=== PATIENT | female | born 1985 | race Caucasian/White ===

== ENCOUNTER 2017-06-11 23:39 | Inpatient (IN) | payer OTHER ==
[~2017-06-11] VITALS: Ht 167.6 cm; Wt 72.0 kg
[2017-06-12] VITALS (14 sets, daily range): BP systolic 104–131; BP diastolic 51–88
[2017-06-12 00:30] LABS: Basophils # (auto) 0 uL; Basophils % (auto) 0.6 % (0.0-2.0); Eosinophils # (auto) 0.1 uL; Eosinophils % (auto) 0.7 % (0.0-7.0); Hematocrit 38.8 % (36.0-46.0); Hemoglobin 12.9 g/dL (12.2-16.2); Lymphocytes # (auto) 2.7 uL; Lymphocytes % (auto) 32.6 % (10.0-50.0); Mean Corpuscular Hemoglobin 27.3 pg (28.0-32.0); Mean Corpuscular Hgb Conc. 33.3 g/dL (32.0-36.0); Mean Corpuscular Volume 81.9 fL (80.0-100.0); Monocytes # (auto) 0.6 uL; Monocytes % (auto) 7.8 % (0.0-12.0); Neutrophils # (auto) 4.7 uL; Neutrophils % (auto) 58.3 % (37.0-80.0); Nucleated Red Blood Cells % 0.1 %; Platelet Count (auto) 375 10^3/uL (140-450); Red Blood Cells 4.74 10^6/uL (4.0-5.20); Red Cell Distribution Width 16.6 % (11.8-14.3); White Blood Cell 8.1 10^3/uL (4.4-10.8)
[2017-06-12] MEDS ORDERED: SODIUM CHLORIDE 0.9% 1,000 ML IV ONE (00:45)
[2017-06-12] MEDS ORDERED: ATROPINE SULF 0.5 MG/5ML SYR IV ONE (00:45)
[2017-06-12 00:46] LABS: Alanine Aminotransferase 20 U/L (13-56); Albumin 4.1 g/dL (3.4-5.0); Anion Gap 6 (5-15); Aspartate Aminotransferase 15 U/L (15-37); BUN/Creatinine Ratio 10.5; Blood Alcohol < 3.0 mg/dL (0-5); Blood Urea Nitrogen 10 mg/dL (7-18); Carbon Dioxide 27 mmol/L (21-32); Chloride 106 mmol/L (98-107); GFR African American 89 mL/min; GFR Non-African American 74 mL/min; Glucose 170 mg/dL (74-106); Magnesium 2.2 mg/dL (1.6-2.6); Potassium 3.1 mmol/L (3.5-5.1); Sodium 139 mmol/L (136-145)
[2017-06-12 00:48] LABS: Alkaline Phosphatase 74 U/L (45-117); Bilirubin, Total 0.3 mg/dL (0.2-1.0); Total Protein 7.8 g/dL (6.4-8.2)
[2017-06-12 01:06] LABS: Acetaminophen < 2.0 ug/mL (10-30); Salicylate 1.9 mg/dL (2.8-20.0)
[2017-06-12 01:41] LABS: Magnesium 2.3 mg/dL (1.6-2.6)
[2017-06-12 02:09] LABS: Urine WBC None Seen /hpf (0 - 5)
[2017-06-12 02:37] LABS: Urine Amorphous Crystal MANY /hpf (None Seen); Urine Bacteria NONE SEEN /hpf (None Seen); Urine Blood Negative /uL (Negative)
[2017-06-12 02:39] LABS: Alcohol, Urine < 3.0 mg/dL (0-5); Amphetamine Screen, Urine POSITIVE (NEGATIVE); Barbiturate Scree,Urine NEGATIVE (NEGATIVE); Benzodiazephine Screen, Urine NEGATIVE (NEGATIVE); Cannabinoid Screen, Urine POSITIVE (NEGATIVE); Cocaine Screen, Urine NEGATIVE (NEGATIVE); Opiate Scree,Urine NEGATIVE (NEGATIVE); Phencyclidine Screen, Urine NEGATIVE (NEGATIVE)
[2017-06-12] MEDS ORDERED: ONDANSETRON HCL 4 MG/2 ML VIAL IV PRN (05:00)
[2017-06-12] MEDS ORDERED: NITROGLYCERIN 0.4 MG SL TAB SL PRN (05:00)
[2017-06-12] MEDS ORDERED: MORPHINE SULFATE 4 MG/ML SYR/VIAL IV PRN (05:00)
[2017-06-12] MEDS ORDERED: NOREPINEPHRINE 8 MG/250ML KIT 250 ML IV ONE (06:10)
[2017-06-12] MEDS: SODIUM CHLORIDE 0.9% 1,000 ML IV SCH ×2 (08:00→15:18)
[2017-06-12] MEDS: FAMOTIDINE 20 MG TAB PO SCH ×2 (10:48→22:00)
[2017-06-12] MEDS: ENOXAPARIN SOD 40 MG/0.4 ML SYRINGE SC SCH (10:48)
[2017-06-12] MEDS ORDERED: IPRATROPIUM BROM 0.5 MG/2.5ML INH SOL NEB ONE ×2 (16:45→17:30)
[2017-06-12 17:00] LABS: Basophils # (auto) 0 uL; Basophils % (auto) 0.1 % (0.0-2.0); Eosinophils # (auto) 0 uL; Hematocrit 43.5 % (36.0-46.0); Hemoglobin 14.2 g/dL (12.2-16.2); Lymphocytes # (auto) 1.3 uL; Lymphocytes % (auto) 7.3 % (10.0-50.0); Mean Corpuscular Hemoglobin 27.2 pg (28.0-32.0); Mean Corpuscular Hgb Conc. 32.6 g/dL (32.0-36.0); Mean Corpuscular Volume 83.5 fL (80.0-100.0); Monocytes % (auto) 5.7 % (0.0-12.0); Neutrophils # (auto) 15.3 uL; Neutrophils % (auto) 86.9 % (37.0-80.0); Platelet Count (auto) 483 10^3/uL (140-450); Red Cell Distribution Width 16.8 % (11.8-14.3); White Blood Cell 17.6 10^3/uL (4.4-10.8)
[2017-06-12] MEDS ORDERED: ATROPINE SULFATE 0.4 MG/1 ML VIAL ONE (17:05)
[2017-06-12 17:11] LABS: Urine Bacteria FEW /hpf (None Seen); Urine Blood Negative /uL (Negative); Urine Mucus FEW (None Seen); Urine Specific Gravity 1.024 (1.001-1.035); Urine WBC <1 /hpf (0 - 5)
[2017-06-12 17:13] LABS: Alanine Aminotransferase 23 U/L (13-56); Albumin 4.4 g/dL (3.4-5.0); Anion Gap 4 (5-15); Aspartate Aminotransferase 23 U/L (15-37); BUN/Creatinine Ratio 6.5; Blood Urea Nitrogen 6 mg/dL (7-18); Carbon Dioxide 27 mmol/L (21-32); Chloride 105 mmol/L (98-107); GFR African American 92 mL/min; GFR Non-African American 76 mL/min; Glucose 157 mg/dL (74-106); Magnesium 2.5 mg/dL (1.6-2.6); Potassium 4.2 mmol/L (3.5-5.1); Sodium 136 mmol/L (136-145)
[2017-06-12 17:19] LABS: INR 0.97 (0.9-1.15); Partial Thromboplastin Time 26.9 sec (22.64-33.71); Prothrombin Time 10.6 sec (9.37-12.3)
[2017-06-12 17:25] LABS: Alkaline Phosphatase 82 U/L (45-117); Bilirubin, Total 0.5 mg/dL (0.2-1.0); Total Protein 8.9 g/dL (6.4-8.2)
[2017-06-12] MEDS: MAGNESIUM SULFATE 1GM/100ML 100 ML IV SCH ×8 (17:26→21:00)
[2017-06-12] MEDS: DOPamine 1600MCG/ML D5W 250 ML IV SCH (17:56)
[2017-06-12] MEDS ORDERED: PROMETHAZINE HCL 25 MG/ML 1ML IV PRN (19:30)
[2017-06-12] MEDS ORDERED: ISOPROTERENOL HCL INJECTION 1 MG in D5W 5% 250 ML IV SCH (19:39)
[2017-06-12] MEDS: METOPROLOL TARTRATE 50 MG TAB NG SCH (22:00)
[2017-06-12] MEDS: SOD CHL 0.45% WITH 20MEQ KCL 1,000 ML IV SCH (22:00)
[2017-06-13] VITALS (26 sets, daily range): BP systolic 113–154; BP diastolic 65–91
[2017-06-13] MEDS ORDERED: DOPamine 1600MCG/ML D5W 250 ML IV ONE (02:24)
[2017-06-13] MEDS: METOPROLOL TARTRATE 50 MG TAB NG SCH ×3 (06:00→22:00)
[2017-06-13 07:09] LABS: Basophils # (auto) 0 uL; Eosinophils # (auto) 0 uL; Hematocrit 41.3 % (36.0-46.0); Hemoglobin 13.6 g/dL (12.2-16.2); Lymphocytes # (auto) 0.7 uL; Lymphocytes % (auto) 3.8 % (10.0-50.0); Mean Corpuscular Hemoglobin 27.1 pg (28.0-32.0); Mean Corpuscular Hgb Conc. 32.9 g/dL (32.0-36.0); Mean Corpuscular Volume 82.4 fL (80.0-100.0); Monocytes # (auto) 0.7 uL; Monocytes % (auto) 3.7 % (0.0-12.0); Neutrophils # (auto) 16.5 uL; Neutrophils % (auto) 92.5 % (37.0-80.0); Platelet Count (auto) 371 10^3/uL (140-450); Red Blood Cells 5.01 10^6/uL (4.0-5.20); Red Cell Distribution Width 16.8 % (11.8-14.3); White Blood Cell 17.8 10^3/uL (4.4-10.8)
[2017-06-13 07:23] LABS: Albumin 3.7 g/dL (3.4-5.0); BUN/Creatinine Ratio 9.1; Bilirubin, Total 0.5 mg/dL (0.2-1.0); Calcium 8.5 mg/dL (8.5-10.1); Potassium 3.9 mmol/L (3.5-5.1)
[2017-06-13] MEDS ORDERED: SUCCINYLCHOLINE CHLORIDE 20 MG/ML 10ML VIAL IV ONE ×3 (08:00→08:11)
[2017-06-13] MEDS ORDERED: ETOMIDATE (2MG/ML) 20ML VIAL IV ONE ×3 (08:00→08:11)
[2017-06-13] MEDS ORDERED: MIDAZOLAM DRIP 50 mg/50mL 50 ML IV SCH (08:20)
[2017-06-13] MEDS: MIDAZOLAM DRIP 50 mg/50mL 50 ML IV SCH (08:25)
[2017-06-13] MEDS: SOD CHL 0.45% WITH 20MEQ KCL 1,000 ML IV SCH ×2 (10:00→22:40)
[2017-06-13] MEDS: ENOXAPARIN SOD 40 MG/0.4 ML SYRINGE SC SCH (11:55)
[2017-06-13] MEDS: FAMOTIDINE 20 MG TAB PO SCH ×2 (11:55→22:30)
[2017-06-13] MEDS: DOPamine 1600MCG/ML D5W 250 ML IV SCH (12:50)
[2017-06-13] MEDS: POTASSIUM CHL 20MEQ/100ML 100 ML IV SCH ×2 (14:43→15:01)
[2017-06-13] MEDS: AMIODARONE HCL 900 MG in DEXTROSE 500 ML IV SCH ×2 (14:47→22:54)
[2017-06-13] MEDS ORDERED: ATROPINE SULF 0.5 MG/5ML SYR IV ONE (19:06)
[2017-06-13] MEDS ORDERED: PROPOFOL 100 ML IV ONE (22:40)
[2017-06-13] MEDS: PROPOFOL 100 ML IV SCH (22:45)
[2017-06-14] VITALS (59 sets, daily range): BP systolic 77–153; BP diastolic 40–108
[2017-06-14] MEDS ORDERED: NOREPINEPHRINE 8 MG/250ML KIT 250 ML IV ONE (01:54)
[2017-06-14] MEDS ORDERED: NOREPINEPHRINE 8 MG/250ML KIT 250 ML IV SCH (02:15)
[2017-06-14] MEDS: DOPamine 1600MCG/ML D5W 250 ML IV SCH ×3 (04:21→16:30)
[2017-06-14] MEDS ORDERED: MIDAZOLAM HCL 10 ML IV ONE (05:59)
[2017-06-14] MEDS: METOPROLOL TARTRATE 50 MG TAB NG SCH ×3 (06:00→22:00)
[2017-06-14 07:37] LABS: Basophils # (auto) 0 uL; Basophils % (auto) 0.1 % (0.0-2.0); Eosinophils # (auto) 0 uL; Eosinophils % (auto) 0.1 % (0.0-7.0); Hematocrit 37.7 % (36.0-46.0); Hemoglobin 12.5 g/dL (12.2-16.2); Lymphocytes # (auto) 1.8 uL; Mean Corpuscular Hemoglobin 27.3 pg (28.0-32.0); Mean Corpuscular Hgb Conc. 33.2 g/dL (32.0-36.0); Mean Corpuscular Volume 82.1 fL (80.0-100.0); Monocytes # (auto) 1.4 uL; Monocytes % (auto) 6.2 % (0.0-12.0); Neutrophils % (auto) 85.6 % (37.0-80.0); Platelet Count (auto) 374 10^3/uL (140-450); Red Blood Cells 4.59 10^6/uL (4.0-5.20); Red Cell Distribution Width 17.4 % (11.8-14.3); White Blood Cell 22.2 10^3/uL (4.4-10.8)
[2017-06-14 07:51] LABS: Albumin 3.2 g/dL (3.4-5.0); BUN/Creatinine Ratio 14.9; Calcium 8.5 mg/dL (8.5-10.1); Potassium 3.6 mmol/L (3.5-5.1)
[2017-06-14 07:54] LABS: Bilirubin, Total 0.4 mg/dL (0.2-1.0); Total Protein 6.7 g/dL (6.4-8.2)
[2017-06-14 09:24] LABS: Urine Bacteria FEW /hpf (None Seen); Urine Blood 1+ /uL (Negative); Urine Mucus MODERATE (None Seen); Urine Specific Gravity 1.035 (1.001-1.035); Urine WBC 25 /hpf (0 - 5)
[2017-06-14] MEDS: MIDAZOLAM DRIP 50 mg/50mL 50 ML IV SCH ×3 (10:23→18:07)
[2017-06-14] MEDS: PROPOFOL 100 ML IV SCH ×4 (10:24→18:27)
[2017-06-14] MEDS: FAMOTIDINE 20 MG TAB PO SCH ×2 (11:04→22:12)
[2017-06-14] MEDS: ENOXAPARIN SOD 40 MG/0.4 ML SYRINGE SC SCH (11:04)
[2017-06-14] MEDS: PIPERACILLIN-TAZO 4.5GM 50 ML IV SCH ×2 (13:00→19:30)
[2017-06-14] MEDS ORDERED: ISOPROTERENOL HCL INJECTION 1 MG in D5W 5% 250 ML IV ONE (15:18)
[2017-06-14] MEDS: MAGNESIUM SULFATE 1GM/100ML 100 ML IV SCH ×4 (15:32→17:30)
[2017-06-14] MEDS: MAGNESIUM SULFATE 1 GM/100 ML IV ONE ×2 (15:32→15:35)
[2017-06-14] MEDS: SOD CHL 0.45% WITH 20MEQ KCL 1,000 ML IV SCH (15:48)
[2017-06-14] MEDS: AMIODARONE HCL 900 MG in DEXTROSE 500 ML IV SCH (22:13)
[2017-06-15] VITALS (70 sets, daily range): BP systolic 87–126; BP diastolic 36–83
[2017-06-15] MEDS: PIPERACILLIN-TAZO 4.5GM 50 ML IV SCH ×4 (00:17→18:00)
[2017-06-15] MEDS: SOD CHL 0.45% WITH 20MEQ KCL 1,000 ML IV SCH ×3 (01:20→18:02)
[2017-06-15] MEDS ORDERED: DOPamine 1600MCG/ML D5W 250 ML IV ONE (03:36)
[2017-06-15] MEDS: METOPROLOL TARTRATE 50 MG TAB NG SCH (06:00)
[2017-06-15 07:37] LABS: BUN/Creatinine Ratio 13.9; Calcium 7.4 mg/dL (8.5-10.1); Magnesium 2.2 mg/dL (1.6-2.6); Potassium 4.2 mmol/L (3.5-5.1)
[2017-06-15 08:00] LABS: Basophils # (auto) 0.1 uL; Basophils % (auto) 0.4 % (0.0-2.0); Eosinophils # (auto) 0.2 uL; Eosinophils % (auto) 1.1 % (0.0-7.0); Hematocrit 33.5 % (36.0-46.0); Hemoglobin 10.9 g/dL (12.2-16.2); Lymphocytes # (auto) 1.3 uL; Lymphocytes % (auto) 8.3 % (10.0-50.0); Mean Corpuscular Hemoglobin 27.3 pg (28.0-32.0); Mean Corpuscular Hgb Conc. 32.6 g/dL (32.0-36.0); Mean Corpuscular Volume 83.6 fL (80.0-100.0); Monocytes % (auto) 6.2 % (0.0-12.0); Neutrophils # (auto) 13.5 uL; Platelet Count (auto) 294 10^3/uL (140-450); Red Cell Distribution Width 17.2 % (11.8-14.3)
[2017-06-15] MEDS: PROPOFOL 100 ML IV SCH ×2 (09:00→16:30)
[2017-06-15] MEDS: MIDAZOLAM DRIP 50 mg/50mL 50 ML IV SCH ×4 (09:00→22:48)
[2017-06-15] MEDS: FAMOTIDINE 20 MG TAB PO SCH ×2 (09:54→22:34)
[2017-06-15] MEDS: ENOXAPARIN SOD 40 MG/0.4 ML SYRINGE SC SCH (09:54)
[2017-06-15] MEDS ORDERED: SODIUM CHLORIDE 0.9% 500 ML IV ONE (14:30)
[2017-06-15] MEDS: DOPamine 1600MCG/ML D5W 250 ML IV SCH (18:01)
[2017-06-15] MEDS: Fibersource Hn 1 Liter GT SCH (18:56)
[2017-06-16] VITALS (102 sets, daily range): BP systolic 87–143; BP diastolic 45–101
[2017-06-16] MEDS: PROPOFOL 100 ML IV SCH ×3 (00:14→18:29)
[2017-06-16] MEDS: PIPERACILLIN-TAZO 4.5GM 50 ML IV SCH ×4 (00:14→17:59)
[2017-06-16 04:52] LABS: Basophils # (auto) 0 uL; Basophils % (auto) 0.4 % (0.0-2.0); Eosinophils # (auto) 0.4 uL; Hemoglobin 11.2 g/dL (12.2-16.2); Lymphocytes # (auto) 1.3 uL; Monocytes # (auto) 0.7 uL
[2017-06-16 04:57] LABS: Eosinophils % (auto) 3.9 % (0.0-7.0); Hematocrit 34.5 % (36.0-46.0); Lymphocytes % (auto) 11.8 % (10.0-50.0); Mean Corpuscular Hemoglobin 26.7 pg (28.0-32.0); Mean Corpuscular Hgb Conc. 32.4 g/dL (32.0-36.0); Mean Corpuscular Volume 82.2 fL (80.0-100.0); Monocytes % (auto) 6.4 % (0.0-12.0); Neutrophils # (auto) 8.6 uL; Neutrophils % (auto) 77.5 % (37.0-80.0); Platelet Count (auto) 291 10^3/uL (140-450); Red Cell Distribution Width 17.2 % (11.8-14.3); White Blood Cell 11.1 10^3/uL (4.4-10.8)
[2017-06-16] MEDS: MIDAZOLAM DRIP 50 mg/50mL 50 ML IV SCH ×3 (05:22→16:05)
[2017-06-16 05:44] LABS: Albumin 2.3 g/dL (3.4-5.0); BUN/Creatinine Ratio 15.2; Bilirubin, Total 0.3 mg/dL (0.2-1.0); Calcium 8.1 mg/dL (8.5-10.1); Magnesium 2.3 mg/dL (1.6-2.6); Potassium 3.7 mmol/L (3.5-5.1); Total Protein 6.3 g/dL (6.4-8.2)
[2017-06-16] MEDS: SOD CHL 0.45% WITH 20MEQ KCL 1,000 ML IV SCH (07:00)
[2017-06-16] MEDS: ENOXAPARIN SOD 40 MG/0.4 ML SYRINGE SC SCH (09:54)
[2017-06-16] MEDS: FAMOTIDINE 20 MG TAB PO SCH ×2 (09:54→22:00)
[2017-06-16] MEDS: ACETAMINOPHEN 325 MG TAB PO PRN (15:00)
[2017-06-16] MEDS ORDERED: VANCOMYCIN 1GM/250ML 250 ML IV ONE ×2 (17:45→21:00)
[2017-06-16] MEDS ORDERED: VANCOMYCIN PER PHARMACY 0 MG IV SCH (18:00)
[2017-06-16] MEDS: Fibersource Hn 1 Liter GT SCH (18:29)
[2017-06-16] MEDS: DOPamine 1600MCG/ML D5W 250 ML IV SCH (22:45)
[2017-06-17] VITALS (106 sets, daily range): BP systolic 96–217; BP diastolic 52–119
[2017-06-17] MEDS: PROPOFOL 100 ML IV SCH ×3 (01:00→11:41)
[2017-06-17] MEDS: ACETAMINOPHEN 325 MG TAB PO PRN ×2 (02:31→18:42)
[2017-06-17 04:03] LABS: Basophils # (auto) 0 uL; Lymphocytes # (auto) 1.1 uL; Monocytes # (auto) 0.7 uL; Platelet Count (auto) 310 10^3/uL (140-450)
[2017-06-17 04:06] LABS: Basophils % (auto) 0.4 % (0.0-2.0); Eosinophils # (auto) 0.2 uL; Eosinophils % (auto) 2.2 % (0.0-7.0); Hematocrit 32.1 % (36.0-46.0); Hemoglobin 10.5 g/dL (12.2-16.2); Lymphocytes % (auto) 9.9 % (10.0-50.0); Mean Corpuscular Hgb Conc. 32.8 g/dL (32.0-36.0); Mean Corpuscular Volume 82.3 fL (80.0-100.0); Monocytes % (auto) 6.1 % (0.0-12.0); Neutrophils % (auto) 81.4 % (37.0-80.0); Red Cell Distribution Width 16.9 % (11.8-14.3)
[2017-06-17 04:21] LABS: Potassium 3.8 mmol/L (3.5-5.1)
[2017-06-17 04:29] LABS: BUN/Creatinine Ratio 19.6; Calcium 8.6 mg/dL (8.5-10.1)
[2017-06-17] MEDS: VANCOMYCIN 1GM/250ML 250 ML IV SCH ×2 (05:00→12:49)
[2017-06-17] MEDS: PIPERACILLIN-TAZO 4.5GM 50 ML IV SCH ×3 (06:12→11:51)
[2017-06-17] MEDS: SOD CHL 0.45% WITH 20MEQ KCL 1,000 ML IV SCH (06:40)
[2017-06-17] MEDS: MIDAZOLAM DRIP 50 mg/50mL 50 ML IV SCH ×4 (07:38→22:02)
[2017-06-17] MEDS: ENOXAPARIN SOD 40 MG/0.4 ML SYRINGE SC SCH (09:28)
[2017-06-17] MEDS: FAMOTIDINE 20 MG TAB PO SCH ×2 (09:28→22:05)
[2017-06-17] MEDS: LEVOFLOXACIN 500 MG TAB GT SCH (12:49)
[2017-06-17] MEDS: DOPamine 1600MCG/ML D5W 250 ML IV SCH (17:17)
[2017-06-17] MEDS ORDERED: ATROPINE SULF 0.5 MG/5ML SYR ONE (20:24)
[2017-06-17] MEDS ORDERED: ATROPINE SULF 0.5 MG/5ML SYR IV ONE (20:30)
[2017-06-17] MEDS: VANCOMYCIN 1,250 MG in D5W 5% 250 ML IV SCH (21:30)
[2017-06-18] VITALS (101 sets, daily range): BP systolic 94–128; BP diastolic 41–77
[2017-06-18] MEDS: ACETAMINOPHEN 325 MG TAB PO PRN (01:31)
[2017-06-18 04:18] LABS: Basophils # (auto) 0 uL; Eosinophils # (auto) 0.2 uL; Eosinophils % (auto) 1.9 % (0.0-7.0); Lymphocytes # (auto) 1.7 uL; Monocytes # (auto) 0.9 uL; Neutrophils # (auto) 8.9 uL; White Blood Cell 11.8 10^3/uL (4.4-10.8)
[2017-06-18 04:22] LABS: Basophils % (auto) 0.4 % (0.0-2.0); Hematocrit 28.6 % (36.0-46.0); Hemoglobin 9.8 g/dL (12.2-16.2); Lymphocytes % (auto) 14.7 % (10.0-50.0); Mean Corpuscular Hgb Conc. 34.2 g/dL (32.0-36.0); Mean Corpuscular Volume 81.7 fL (80.0-100.0); Monocytes % (auto) 7.7 % (0.0-12.0); Neutrophils % (auto) 75.3 % (37.0-80.0); Platelet Count (auto) 298 10^3/uL (140-450); Red Cell Distribution Width 17.1 % (11.8-14.3)
[2017-06-18 04:37] LABS: BUN/Creatinine Ratio 13.5; Calcium 8.3 mg/dL (8.5-10.1); Potassium 3.7 mmol/L (3.5-5.1)
[2017-06-18] MEDS: SOD CHL 0.45% WITH 20MEQ KCL 1,000 ML IV SCH ×3 (05:21→17:55)
[2017-06-18] MEDS: VANCOMYCIN 1,250 MG in D5W 5% 250 ML IV SCH ×3 (05:21→21:00)
[2017-06-18] MEDS: MIDAZOLAM DRIP 50 mg/50mL 50 ML IV SCH ×5 (05:52→22:21)
[2017-06-18] MEDS: LEVOFLOXACIN 500 MG TAB GT SCH (09:43)
[2017-06-18] MEDS: ENOXAPARIN SOD 40 MG/0.4 ML SYRINGE SC SCH (09:43)
[2017-06-18] MEDS: methylPREDNISolone SOD SUCC 40 MG/ML VL IV SCH ×2 (09:43→22:21)
[2017-06-18] MEDS: FAMOTIDINE 20 MG TAB PO SCH ×2 (09:43→22:21)
[2017-06-18] MEDS: DOPamine 1600MCG/ML D5W 250 ML IV SCH (11:49)
[2017-06-18] MEDS: PROPOFOL 100 ML IV SCH ×2 (13:31→22:56)
[2017-06-19] VITALS (105 sets, daily range): BP systolic 93–142; BP diastolic 36–99
[2017-06-19] MEDS: MIDAZOLAM DRIP 50 mg/50mL 50 ML IV SCH ×2 (02:41→22:10)
[2017-06-19] MEDS: VANCOMYCIN 1GM/250ML 250 ML IV SCH ×3 (03:08→18:32)
[2017-06-19] MEDS: PROPOFOL 100 ML IV SCH (05:00)
[2017-06-19] MEDS: DOPamine 1600MCG/ML D5W 250 ML IV SCH (06:21)
[2017-06-19 07:13] LABS: BUN/Creatinine Ratio 23.3; Calcium 8.7 mg/dL (8.5-10.1); Potassium 4.5 mmol/L (3.5-5.1)
[2017-06-19] MEDS: LEVOFLOXACIN 500 MG TAB GT SCH (10:03)
[2017-06-19] MEDS: ENOXAPARIN SOD 40 MG/0.4 ML SYRINGE SC SCH (10:03)
[2017-06-19] MEDS: methylPREDNISolone SOD SUCC 40 MG/ML VL IV SCH ×2 (10:03→22:00)
[2017-06-19] MEDS: FAMOTIDINE 20 MG TAB PO SCH ×2 (10:03→22:00)
[2017-06-19] MEDS: SOD CHL 0.45% WITH 20MEQ KCL 1,000 ML IV SCH (11:42)
[2017-06-20] VITALS (44 sets, daily range): BP systolic 95–144; BP diastolic 39–93
[2017-06-20] MEDS: SOD CHL 0.45% WITH 20MEQ KCL 1,000 ML IV SCH ×2 (00:14→15:15)
[2017-06-20] MEDS: PROPOFOL 100 ML IV SCH ×2 (00:14→05:50)
[2017-06-20] MEDS: DOPamine 1600MCG/ML D5W 250 ML IV SCH (00:53)
[2017-06-20] MEDS: MIDAZOLAM DRIP 50 mg/50mL 50 ML IV SCH (01:51)
[2017-06-20 02:42] LABS: BUN/Creatinine Ratio 22.7; Calcium 8.7 mg/dL (8.5-10.1); Potassium 4.6 mmol/L (3.5-5.1)
[2017-06-20] MEDS: VANCOMYCIN 1GM/250ML 250 ML IV SCH (03:08)
[2017-06-20 04:01] LABS: Basophils # (auto) 0 uL; Basophils % (auto) 0.2 % (0.0-2.0); Eosinophils # (auto) 0 uL; Eosinophils % (auto) 0.1 % (0.0-7.0); Hematocrit 31.2 % (36.0-46.0); Hemoglobin 10.4 g/dL (12.2-16.2); Lymphocytes # (auto) 1.5 uL; Lymphocytes % (auto) 17.3 % (10.0-50.0); Mean Corpuscular Hemoglobin 27.3 pg (28.0-32.0); Mean Corpuscular Hgb Conc. 33.3 g/dL (32.0-36.0); Monocytes # (auto) 0.4 uL; Monocytes % (auto) 4.6 % (0.0-12.0); Neutrophils % (auto) 77.8 % (37.0-80.0); Platelet Count (auto) 371 10^3/uL (140-450); Red Blood Cells 3.81 10^6/uL (4.0-5.20); Red Cell Distribution Width 16.8 % (11.8-14.3); White Blood Cell 8.9 10^3/uL (4.4-10.8)
[2017-06-20] MEDS: ENOXAPARIN SOD 40 MG/0.4 ML SYRINGE SC SCH (10:08)
[2017-06-20] MEDS: methylPREDNISolone SOD SUCC 40 MG/ML VL IV SCH ×2 (10:11→22:38)
[2017-06-20] MEDS: VANCOMYCIN 1,250 MG in D5W 5% 250 ML IV SCH ×2 (15:00→22:38)
[2017-06-20] MEDS: FAMOTIDINE 20 MG TAB PO SCH ×2 (17:00→22:38)
[2017-06-20] MEDS: LEVOFLOXACIN 500 MG TAB GT SCH (17:00)
[2017-06-21] VITALS (14 sets, daily range): BP systolic 108–149; BP diastolic 53–92
[2017-06-21] MEDS: SOD CHL 0.45% WITH 20MEQ KCL 1,000 ML IV SCH (03:37)
[2017-06-21] MEDS: VANCOMYCIN 1,250 MG in D5W 5% 250 ML IV SCH ×2 (09:30→18:41)
[2017-06-21] MEDS: FAMOTIDINE 20 MG TAB PO SCH ×2 (10:07→23:21)
[2017-06-21] MEDS: methylPREDNISolone SOD SUCC 40 MG/ML VL IV SCH (10:07)
[2017-06-21] MEDS: ENOXAPARIN SOD 40 MG/0.4 ML SYRINGE SC SCH (10:07)
[2017-06-21] MEDS: LEVOFLOXACIN 500 MG TAB GT SCH (10:07)
[2017-06-22] MEDS: VANCOMYCIN 1,250 MG in D5W 5% 250 ML IV SCH ×2 (05:59→14:55)
[2017-06-22 08:00] VITALS: BP 134/79
[2017-06-22] MEDS: FAMOTIDINE 20 MG TAB PO SCH ×2 (10:09→22:30)
[2017-06-22] MEDS: LEVOFLOXACIN 500 MG TAB GT SCH (10:09)
[2017-06-22] MEDS: ENOXAPARIN SOD 40 MG/0.4 ML SYRINGE SC SCH (10:09)
[2017-06-22 12:00] VITALS: BP 137/85
[2017-06-22 16:00] VITALS: BP 146/88
[2017-06-22 22:00] VITALS: BP 130/66
[2017-06-23] MEDS: VANCOMYCIN 1,250 MG in D5W 5% 250 ML IV SCH ×2 (01:20→11:17)
[2017-06-23 05:00] VITALS: BP 135/92
[2017-06-23 09:00] VITALS: BP 120/89
[2017-06-23] MEDS: LEVOFLOXACIN 500 MG TAB GT SCH (09:34)
[2017-06-23] MEDS: ENOXAPARIN SOD 40 MG/0.4 ML SYRINGE SC SCH (09:34)
[2017-06-23] MEDS: FAMOTIDINE 20 MG TAB PO SCH (09:34)
[2017-06-23 10:39] LABS: Basophils # (auto) 0.1 uL; Eosinophils # (auto) 0.2 uL; Hemoglobin 13.6 g/dL (12.2-16.2); Monocytes # (auto) 0.7 uL; Neutrophils # (auto) 8.5 uL; White Blood Cell 12.5 10^3/uL (4.4-10.8)
[2017-06-23 10:40] LABS: Basophils % (auto) 0.6 % (0.0-2.0); Eosinophils % (auto) 1.7 % (0.0-7.0); Hematocrit 40.9 % (36.0-46.0); Lymphocytes % (auto) 24.2 % (10.0-50.0); Mean Corpuscular Hemoglobin 27.1 pg (28.0-32.0); Mean Corpuscular Hgb Conc. 33.3 g/dL (32.0-36.0); Mean Corpuscular Volume 81.3 fL (80.0-100.0); Monocytes % (auto) 5.6 % (0.0-12.0); Neutrophils % (auto) 67.9 % (37.0-80.0); Nucleated Red Blood Cells % 0.1 %; Platelet Count (auto) 511 10^3/uL (140-450); Red Blood Cells 5.03 10^6/uL (4.0-5.20); Red Cell Distribution Width 16.9 % (11.8-14.3)
[2017-06-23 10:55] LABS: BUN/Creatinine Ratio 14.7; Calcium 9.3 mg/dL (8.5-10.1); Potassium 3.7 mmol/L (3.5-5.1)
[2017-06-23 13:00] VITALS: BP 133/79
[2017-06-23] MEDS ORDERED: VANCOMYCIN 1GM/250ML 250 ML IV SCH (18:00)
[2017-06-23 18:22] VITALS: BP 133/79
== END 2017-06-23 18:45 | disposition home or self-care (01) | DRG 917 ==
LOC: EDBD 23:39 → ER 23:46 → TELE 23:47 → ICU WEST 06-15 07:55 → TELE-WESTW 06-21 14:57
PROVIDERS: ADMIT Nurse Practitioner; ATTEND Internal Medicine Pulmonary Disease
PROC: 5A1955Z Respiratory Ventilation, Greater than 96 Consecutive Hours (ICD-10-PCS; principal; 2017-06-11)
PROC: 0BH17EZ Insertion of Endotracheal Airway into Trachea, Via Natural or Artificial Opening (ICD-10-PCS; 2017-06-11)
DX: T48.6X2A Poisoning by antiasthmatics, intentional self-harm, initial encounter (principal); G92 Toxic encephalopathy; J96.91 Respiratory failure, unspecified with hypoxia; G93.1 Anoxic brain damage, not elsewhere classified; N39.0 Urinary tract infection, site not specified; I47.2 Ventricular tachycardia; J98.11 Atelectasis; R00.1 Bradycardia, unspecified; B96.20 Unspecified Escherichia coli [E. coli] as the cause of diseases classified elsewhere; B95.62 Methicillin resistant Staphylococcus aureus infection as the cause of diseases classified elsewhere; I08.0 Rheumatic disorders of both mitral and aortic valves; F32.9 Major depressive disorder, single episode, unspecified; I45.81 Long QT syndrome; Z79.899 Other long term (current) drug therapy; Z91.5 Personal history of self-harm; Z72.0 Tobacco use; Y92.89 Other specified places as the place of occurrence of the external cause
CPT/HCPCS: 36415; 36600; 70450; 71045; 80048; 80053; 80202; 80307; 80320; 80329; 81001; 81025; 82805; 83735; 83880; 84484; 85025; 85379; 85610; 85730; 87040; 87070; 87077; 87081; 87086; 87088; 87186; 87205; 87493; 92610; 93005; 93306; 94002; 94003; 94640; 94761; 95819; 96365; 96372; J0330; J0461; J2250; J2543; J2704; J7060

== ENCOUNTER 2017-08-30 23:18 | Emergency (ER) | payer OTHER ==
[~2017-08-30] VITALS: Ht 160 cm; Wt 68.0 kg
[2017-08-31 00:05] LABS: Basophils # (auto) 0.1 uL; Basophils % (auto) 0.7 % (0.0-2.0); Eosinophils # (auto) 0.1 uL; Hematocrit 36.2 % (36.0-46.0); Hemoglobin 11.8 g/dL (12.2-16.2); Lymphocytes # (auto) 1.6 uL; Lymphocytes % (auto) 18.7 % (10.0-50.0); Mean Corpuscular Hgb Conc. 32.6 g/dL (32.0-36.0); Mean Corpuscular Volume 82.9 fL (80.0-100.0); Monocytes # (auto) 0.5 uL; Monocytes % (auto) 5.6 % (0.0-12.0); Neutrophils # (auto) 6.2 uL; Platelet Count (auto) 396 10^3/uL (140-450); Red Blood Cells 4.36 10^6/uL (4.0-5.20); Red Cell Distribution Width 15.4 % (11.8-14.3); White Blood Cell 8.3 10^3/uL (4.4-10.8)
[2017-08-31 00:20] LABS: Salicylate < 1.7 mg/dL (2.8-20.0)
[2017-08-31 00:22] LABS: Acetaminophen < 2.0 ug/mL (10-30); BUN/Creatinine Ratio 17.5; Potassium 3.8 mmol/L (3.5-5.1)
[2017-08-31 00:24] LABS: Bilirubin, Total 0.3 mg/dL (0.2-1.0); Total Protein 7.9 g/dL (6.4-8.2)
[2017-08-31 01:35] LABS: Urine Pregnacy Test Negative (Negative)
[2017-08-31 01:48] LABS: Alcohol, Urine < 3.0 mg/dL (0-5); Amphetamine Screen, Urine POSITIVE (NEGATIVE); Barbiturate Scree,Urine NEGATIVE (NEGATIVE); Benzodiazephine Screen, Urine NEGATIVE (NEGATIVE); Cannabinoid Screen, Urine POSITIVE (NEGATIVE); Cocaine Screen, Urine NEGATIVE (NEGATIVE); Opiate Scree,Urine NEGATIVE (NEGATIVE); Phencyclidine Screen, Urine NEGATIVE (NEGATIVE)
[2017-08-31 02:41] VITALS: BP 120/99
[2017-08-31] MEDS ORDERED: SODIUM CHLORIDE 0.9% 1,000 ML IV ONE (03:00)
[2017-08-31 03:08] LABS: Basophils # (auto) 0.1 uL; Basophils % (auto) 0.7 % (0.0-2.0); Eosinophils # (auto) 0.1 uL; Hematocrit 36.9 % (36.0-46.0); Lymphocytes # (auto) 2.3 uL; Lymphocytes % (auto) 25.7 % (10.0-50.0); Mean Corpuscular Hgb Conc. 32.6 g/dL (32.0-36.0); Mean Corpuscular Volume 82.8 fL (80.0-100.0); Monocytes # (auto) 0.6 uL; Neutrophils # (auto) 5.9 uL; Neutrophils % (auto) 65.6 % (37.0-80.0); Platelet Count (auto) 384 10^3/uL (140-450); Red Blood Cells 4.46 10^6/uL (4.0-5.20); Red Cell Distribution Width 15.6 % (11.8-14.3); White Blood Cell 8.9 10^3/uL (4.4-10.8)
[2017-08-31 03:34] LABS: Anion Gap 9 (5-15); Carbon Dioxide 25 mmol/L (21-32); Chloride 107 mmol/L (98-107); Potassium 3.3 mmol/L (3.5-5.1); Sodium 141 mmol/L (136-145)
[2017-08-31 03:35] LABS: Alanine Aminotransferase 19 U/L (13-56); Alkaline Phosphatase 70 U/L (45-117); Aspartate Aminotransferase 17 U/L (15-37); Bilirubin, Total 0.4 mg/dL (0.2-1.0); Blood Alcohol < 3.0 mg/dL (0-5); Blood Urea Nitrogen 12 mg/dL (7-18); Calcium 9.1 mg/dL (8.5-10.1); GFR African American 117 mL/min; GFR Non-African American 97 mL/min; Glucose 116 mg/dL (74-106); Total Protein 7.8 g/dL (6.4-8.2)
[2017-08-31] MEDS ORDERED: CEFTRIAXONE SODIUM 2 GM in D5W 5% 50 ML IV ONE (05:15)
== END 2017-08-31 05:19 | disposition home or self-care (01) ==
LOC: ER 23:22
DX: F15.10 Other stimulant abuse, uncomplicated (principal); N39.0 Urinary tract infection, site not specified
CPT/HCPCS: 36415; 80053; 80307; 80320; 80329; 81001; 81025; 85025; 93005; 94761; 99285; J7030; 96374; J0696; J7060

== ENCOUNTER 2018-02-20 15:55 | Emergency (ER) | payer MEDICAID, OTHER ==
[~2018-02-20] VITALS: Ht 160 cm; Wt 69.4 kg
[2018-02-20 15:59] VITALS: BP 132/83
== END 2018-02-20 16:46 | disposition left against medical advice (07) ==
LOC: ER 15:55 → EDBD 15:55 → ER 16:46
DX: R51 Headache (principal); F41.9 Anxiety disorder, unspecified; F32.9 Major depressive disorder, single episode, unspecified